=== PATIENT | female | born 1955 | race Caucasian/White ===

== ENCOUNTER 2022-03-07 08:53 | Outpatient (CLI) | payer BC, SELFPAY ==
--- NOTE | 2022-03-07 08:45 | RT.EKG_ITS ---
APPROVED REPORT Exam: Resting ECG Reason for Exam: Patient Location: O HR:88 bpm ECG Measurements Heart Rate 88 AXIS LA 152 P 22 QRSd 103 QRS -3 QT 406 T 0 QTc 492 Conclusion Sinus rhythm...normal P axis, V-rate 50- 99 Probable left atrial enlargement...P >50mS, <-0.10mV V1 Borderline T abnormalities, lateral leads...T flat/neg, I aVL V5 V6 Late transition Baseline wander in lead(s) V1
== END 2022-03-07 08:54 | disposition home or self-care (01) ==
LOC: DI.CARD 08:55
PROVIDERS: PCP Internal Medicine; Visit Provider Internal Medicine Cardiovascular Disease
DX: R07.9 Chest pain, unspecified (principal)
CPT/HCPCS: 93010

== ENCOUNTER 2022-03-18 01:01 | Outpatient (CLI) | payer BC, SELFPAY ==
--- NOTE | 2022-03-18 07:00 | DI.NM_ITS ---
APPROVED REPORT Exam: Pharmacologic Patient Location: Out-Patient Room/Bed: Stress Nurse: Zo Senior RN Ordering Provider:CLINT ELLISON, Contact Number: [phone] BMI: 32.05 Baseline Rhythm: Sinus Bradycardia Comment: Resting ST abnormalities inferior and lateral leads Indications: Chest pain, hypertensive disorder, abnormal EKG Medical History Medical History: Hypertension, hyperlipidemia, obesity, smoker (current), chronic pain, abnormal EKG, dyspnea, palpitations Cardiac Medications: Metoprolol succinate, losartan, aspirin Allergies: Aspirin, lisinopril Cardiac Risk Factors: Hypertension, hyperlipidemia, obesity, smoker (current) Previous Cardiac Procedures: None Pretest Chest Pain Characteristics: Baseline L side CP 12/13 Exercise History: Sedentary Physical Disabilities: None Lung Sounds: Clear to auscultation Heart Sounds: Regular Stress Test Details Test: Pharmacologic stress was paired with low level exercise. Reason for pharmacologic stress test: resting ST abnormalities. Nuclear Acquisition: Rest Tc-99m/Stress Tc-99m 1 day Rest Isotope: Tc-99m Sestamibi. Dose: 9.5 Date: 03/18/2022 Injection Time: 1115 Stress Isotope: Tc-99m Sestamibi. Dose: 33.0 Date: 03/18/2022 Injection Time: 13.16 HR Resting HR Supine: 55 bpm Max Heart Rate (APMHR): 156.297919 bpm Resting HR Standin bpm Target HR (85% APMHR): 132.862410 bpm Max HR Achieved: 109 bpm % of APMHR: 69.87 Recovery HR: 74 bpm HR response to stress: Normal HR response to stress Comment: Metoprolol succinate not held BP Resting BP Supine: 184/92 mmHg Resting BP Standin/92 mmHg Max BP: 186/104 mmHg Recovery BP: 146/96 mmHg BP response to stress: Abnormal hypertensive response to stress. ECG Resting ECG: Sinus Bradycardia Ectopy: None Stress ECG: Sinus Rhythm, Sinus Tachycardia ST Change: Nondiagnostic resting ST abnormalities Arrhythmia: Rare PAC Recovery ECG: Sinus Rhythm Recovery ST Change: Nondiagnostic resting ST abnormalities Recovery Arrhythmia: Rare PVC Clinical Stress Symptoms: Chest pain, Dyspnea, Dizziness, General Fatigue Angina Score: Non-Limiting Rate Pressure Product: Stress ECG Conclusion 1. Resting electrocardiogram showed left ventricular hypertrophy with repolarization abnormalities 2. Patient underwent testing using a combination of low-level exercise and pharmacologic stress with regadenoson 3. Peak heart rate achieved was 69% of predicted for age 4. The electrocardiographic portion of the test showed an additional [address] depression p ost stress 5. See MPI report Stress Test Summary STAGE HR BP Symptoms NOTES Supine 55 184/92 Baseline L side CP 3/10 SpO2 96% 1 min post Lexiscan injection 107 178/110 Mild dizziness SpO2 96% 3 min post Lexiscan injection 91 186/104 L side CP 4/10, moderate SOB SpO2 94% 6 min post Lexiscan injection 82 174/106 L side CP return to baseline, mild SOB, mild dizziness SpO 2 96% 9 min post Lexiscan injection 74 146/96 SOB and dizziness resolved SpO2 96% Pharmacologic stress was paired with low level exercise due to baseline ST abnormalities in inferior and lateral leads. Pt walked on treadmill at 1.5mph and 0% grade during Regadenoson administration. T olerated testing well. MPI Conclusion Normal myocardial perfusion without evidence of ischemia or prior infarction EF was measured at 40%. Wall motion appears normal Radiologist Interpretation Radiologist agrees with Natural Resource Technician's Interpretation. Radiologist Interpretation by: Migdalia Franklin MD Interpretation Date/Time: 03/19/2022 09:45:16
[2022-03-18] MEDS: Regadenoson 0.4 MG/5 ML SYR IVP (14:02)
== END 2022-03-18 01:21 ==
LOC: DI 01:01
PROVIDERS: PCP Internal Medicine; Visit Provider Internal Medicine Cardiovascular Disease
DX: I10 Essential (primary) hypertension (principal); R07.89 Other chest pain; R94.31 Abnormal electrocardiogram [ECG] [EKG]
CPT/HCPCS: 78452; 93017; J2785